=== PATIENT | female | born 1970 | race Caucasian/White ===

== ENCOUNTER 2023-10-02 13:47 | Emergency (ER) | payer OTHER ==
[~2023-10-02] VITALS: Ht 167.6 cm; Wt 61.4 kg
[2023-10-02] MEDS ORDERED: METOCLOPRAMIDE HCL 5 MG/ML 2 ML VIAL IVP ONE (15:00)
[2023-10-02] MEDS ORDERED: SODIUM CHLORIDE 0.9% 1,000 ML IV ONE (15:00)
[2023-10-02] MEDS ORDERED: DiphenhydrAMINE HCL 50 MG/ML VIAL IVP ONE (15:00)
[2023-10-02] MEDS ORDERED: KETOROLAC TROMETHAMINE 30 MG/ML VIAL IVP ONE (15:00)
[2023-10-02 17:10] VITALS: BP 145/75; PULSE 110; RESP 18; TEMP 98.6
== END 2023-10-02 17:28 | disposition home or self-care (01) ==
LOC: EMS 13:52
DX: G43.909 Migraine, unspecified, not intractable, without status migrainosus (principal); Z91.011 Allergy to milk products; Z91.012 Allergy to eggs
CPT/HCPCS: 99284; 96374; 96375; 96361; J1200; J1885; J2765; J7030